=== PATIENT | female | born 1980 | race Caucasian/White ===

== ENCOUNTER → 2019-12-16 | Outpatient (CLI) | payer OTHER ==
--- NOTE | 2019-12-16 16:13 | Diagnostic Imaging Report ---
EXAMINATION: HEEL LT INDICATION: Heel pain COMPARISON: None FINDINGS: No acute fracture or dislocation. Alignment is anatomic. No substantial ankle joint effusion. Small plantar calcaneal spur. Mild Achilles enthesopathy. IMPRESSION: No acute osseous injury. Bony proliferative changes of the calcaneus. Signed by: Randi Schulte MD on 12/16/2019 4:10 PM
== END ==
LOC: RAD 14:52
PROVIDERS: ATTEND Family Medicine
DX: M79.672 Pain in left foot (principal)